=== PATIENT | female | born 1955 | race Caucasian/White ===

== ENCOUNTER 2020-10-12 21:58 | Emergency (ER) | payer MEDICARE ==
[~2020-10-12] VITALS: Ht 167.6 cm; Wt 110.0 kg
[2020-10-12 22:26] VITALS: BP 147/68
--- NOTE | 2020-10-12 22:51 | PHYS DOC ---
Past History Past Medical History: Diabetes, Hypertension Past Surgical History: Cholecystectomy, Hysterectomy Alcohol Use: None Adult General Chief Complaint Chief Complaint: KNEE INJURY HPI HPI Patient is a 65-year-old female who presents with a chief complaint of right knee pain. States the pain has been going on for approximately 6 months, is dull and achy in nature, 6 out of 10. States over the last couple of weeks its been really consistent. States she did take some hydrocodone at home with only minimal relief. States she has not had time to discuss this with her primary care physician. Denies any traumas, fevers or procedures in that area. Patient states she is not sure why all of a sudden started hurting. Denies any chest pain, shortness of breath, abdominal pain, nausea, vomiting, rash. Review of Systems Review of Systems Review of systems otherwise unremarkable except for noted in HPI. Allergies Allergies Allergies Coded Allergies Type Severity Reaction Last Updated Verified atorvastatin Allergy Unknown 10/12/20 Yes benzalkonium Allergy Unknown 10/12/20 Yes codeine Allergy Unknown 10/12/20 Yes erythromycin base Allergy Unknown 10/12/20 Yes latex Allergy Unknown 10/12/20 Yes levofloxacin Allergy Unknown 10/12/20 Yes neomycin Allergy Unknown 10/12/20 Yes niacin Allergy Unknown 10/12/20 Yes Physical Exam Physical Exam Constitutional: Well developed, well nourished, no acute distress, non-toxic appearance. [] HENT: Normocephalic, atraumatic, Cardiovascular:Heart rate regular rhythm, Skin: Warm, dry, no erythema, no rash. [] Back: No tenderness, no CVA tenderness. [] Extremities: Right knee tenderness on palpation and range of motion. Patient is able to walk with some discomfort. No obvious deformity. Neurologic: Alert and oriented X 3, normal motor function, normal sensory func tion, no focal deficits noted. [] Psychologic: Affect normal, judgement normal, mood normal. [] Current Patient Data Vital Signs Vital Signs Date Time Temp Pulse Resp B/P (MAP) Pulse Ox O2 Delivery O2 Flow Rate FiO2 10/12/20 22:26 97.8 80 16 147/68 (94) 95 Room Air EKG EKG [] Radiology/Procedures Radiology/Procedures [] Heart Score Risk Factors: Risk Factors: DM, Current or recent (<one month) smoker, HTN, HLP, family history of CAD, obesity. Risk Scores: Risk Factors: DM, Current or recent (<one month) smoker, HTN, HLP, family history of CAD, obesity. Course & Med Decision Making Course & Med Decision Making Patient is a 65-year-old female presents with right knee pain for 6 months Vital signs not concerning. Physical exam noted above. States she took some ibuprofen at home as well as a [place] before coming to the emergency department. Given ice pack on arrival. Imaging not concerning for acute osseous abnormality. Discussed findings with patient and recommended pain regimen at home including Tylenol, ibuprofen and ice. Given a short course of hydrocodone for breakthrough pain only. Advised to call primary care physician first thing in the morning to set up a post ER follow-up visit to discuss chronic management of knee pain and set up an outpatient MRI if needed. Patient was grateful, verbalized understanding and agreed with plan of discharge. [] Dragon Disclaimer Dragon Disclaimer This electronic medical record was generated, in whole or in part, using a voice recognition dictation system. Departure Departure: Impression: Primary Impression: Knee pain Disposition: 01 DC HOME SELF CARE/HOMELESS Condition: IMPROVED Scripts Hydrocodone Bit/Acetaminophen (HYDROCODONE-APAP 5-325 ) 1 Each Tablet 1 TAB PO PRN Q6HRS PRN for PAIN, #10 TAB 0 Refills Prov: RUBIN VERA MD 10/12/20 RUBIN VERA MD Oct 12, 2020 22:51
[2020-10-12] MEDS ORDERED: HYDR-2155 PO (23:35)
--- NOTE | 2020-10-13 00:03 | RAD ---
EXAM: 3 views right knee DATE: 10/12/2020 10:59 PM INDICATION: Right knee pain with swelling, no trauma COMPARISON: No Prior FINDINGS: No acute fracture or dislocation. Mild medial compartment joint space narrowing with tricompartmental osteophytes. Chondrocalcinosis. No knee joint effusion. Patellar enthesopathy. Joint body of the pos terior joint line. IMPRESSION: 1. No evidence of acute fracture or dislocation. 2. Right knee joint osteoarthritis with joint bodies of the posterior joint line. Chondrocalcinosis suggests component of CPPD arthropathy. 3. No knee joint effusion. Electronically signed by: Pito Nieves MD (10/12/2020 11:56 PM) PAT[facility]ICK
== END 2020-10-12 23:55 | disposition home or self-care (01) ==
LOC: ER 21:58
DX: M25.561 Pain in right knee (principal); E11.9 Type 2 diabetes mellitus without complications; I10 Essential (primary) hypertension; Z88.8 Allergy status to other drugs, medicaments and biological substances; Z88.5 Allergy status to narcotic agent; Z91.040 Latex allergy status; Z88.1 Allergy status to other antibiotic agents
CPT/HCPCS: 73562; 99284